=== PATIENT | female | born 1945 | race Caucasian/White ===

== ENCOUNTER → 2021-04-26 | Outpatient (CLI) | payer MEDICARE, OTHER ==
[~2021-04-26] MED LIST: AMIT25 PO; CLOP75 PO; METO50ER PO; VITAMIN D310 MC4 PO; ZYRTEC10 M2 PO
[2021-04-26 12:00] LABS: BASOPHILS ABSOLUTE AUTO 0.05 K/mm3 (0.00-0.23); BASOPHILS PERCENT AUTO 1 % (0-2); EOSINOPHILS ABSOLUTE AUTO 0.13 K/mm3 (0.00-0.68); EOSINOPHILS PERCENT AUTO 1 % (0-6); IMMATURE GRAN ABSOLUTE AUTO 0.02 K/mm3 (0.00-0.10); IMMATURE GRAN PERCENT AUTO 0 % (0-1); LYMPHOCYTES ABSOLUTE AUTO 1.71 K/mm3 (0.84-5.20); LYMPHOCYTES PERCENT AUTO 19 % (21-46); MONOCYTES ABSOLUTE AUTO 0.56 K/mm3 (0.16-1.47); MONOCYTES PERCENT AUTO 6 % (4-13); Mean Corpuscular HGB 28.1 pg (26.0-34.0); Mean Corpuscular HGB Conc 31.4 g/dL (31.5-36.5); Mean Corpuscular Volume 90 fL (80-100); Mean Platelet Volume 9.7 fL (9.1-12.4); NEUTROPHILS ABSOLUTE AUTO 6.65 K/mm3 (1.96-9.15); NEUTROPHILS PERCENT AUTO 73 % (41-73); Platelet Count 273 K/mm3 (150-400); RDW Coefficient Variation 13.4 % (11.7-14.2); RDW Standard Deviation 43.9 fL (35.1-46.3); Red Blood Cell Count 3.91 M/mm3 (3.80-5.20); White Blood Cell Count 9.12 K/mm3 (4.00-11.30)
[2021-04-26 12:23] LABS: Bun/Creatinine Ratio 20.6 (12.0-20.0); Calcium, Blood 8.9 mg/dL (8.5-10.1); Creatinine, Blood 1.6 mg/dL (0.40-1.00); Potassium, Blood 4.1 mmol/L (3.5-5.5)
== END ==
LOC: LAB SHORT 11:52
PROVIDERS: Orthopaedic Surgery
DX: Z01.812 Encounter for preprocedural laboratory examination (principal); M16.0 Bilateral primary osteoarthritis of hip; M25.551 Pain in right hip
CPT/HCPCS: 80048; 85025